=== PATIENT | male | born 1975 | race Caucasian/White ===

== ENCOUNTER 2025-04-22 15:03 | Emergency (ER) | payer OTHER, SELFPAY ==
[2025-04-22] VITALS (13 sets, daily range): BP systolic 138–168; BP diastolic 96–116; PULSE 104–128; RESP 18–32; TEMP 36.6–37.4; O2SAT 89–97
--- NOTE | ~2025-04-22 | XR_ITS ---
EXAMINATION: XR chest 2V 04/22/2025 15:50 INDICATION: Hypoxia PROCEDURE: 2 view chest COMPARISON: No prior studies for comparison. FINDINGS: The lungs are clear. The cardiomediastinal silhouette is within normal limits. There are no pleural effusions. There is no pneumothorax suspected. IMPRESSION: 1: NO ACUTE CARDIOPULMONARY DISEASE. Reviewed, dictated and finalized at location B.
--- NOTE | ~2025-04-22 | CT_ITS ---
CT brain wo con Ordering provider: Kvng Kilgore MD History: 49 years Male with . ams . Comparison: None. Technique: CT of the head without contrast. Radiation reduction technique utilized. The dose-length product was 804.729 mGy-cm. FINDINGS: BRAIN PARENCHYMA AND CSF SPACES: No midline shift, mass effect or hemorrhage. The brain parenchyma a nd CSF spaces are otherwise normal. VISUALIZED PARANASAL SINUSES: Well aerated. MASTOIDS: Well aerated. BONES: The bones appear intact. SOFT TISSUES: Visualized nasopharynx is normal. Superficial soft tissues are normal. IMPRESSION: No acute intracranial findings. Reviewed, dictated and finalized at location A.
--- NOTE | 2025-04-22 15:10 | ED_ITS ---
HPI - Altered Mental Status General Chief Complaint: Seizure Stated Complaint: confusion Time Seen by Provider: 04/22/25 15:08 Source: patient Mode of arrival: EMS Limitations: no limitations History of Present Illness HPI narrative: Patient is a 49-year-old male with last remembrance of a situation where he was urinating on the floor in the other room of his bedroom. This happened prior to arrival. He has a history of seizures but has not been on his Keppra for many years. He has not had a seizure activity since 2018. There was no witnessed seizure activity today. He was confused and the family called EMS. He is now back to baseline but has some aches and pains and his mouth and jaw and tongue hurt at this time. upon presentation to the emergency room the patient has tachycardia and hypoxia for unclear reasoning. MD complaint: altered mental status Onset (ago): hour(s) ( One) Timing confirmed by: family member Severity: moderate Consistency of symptoms: unknown Context: seizure disorder Associated symptoms: malaise, seizure ( unknown), shortness of breath, weakness ( muscle aches and pains) and incontinence ( urine) Treatments prior to arrival: other ( none) Related Data Home Medications ?Medication ?Instructions ?Recorded ?Confirmed ?Last Taken ?Type No Home Medications 04/22/25 04/22/25 Unknown History Allergies Allergy/AdvReac Type Severity Reaction Status Date / Time No Known Allergies Allergy Verified 04/22/25 15:13 Review of Systems 2 Review of Systems: All systems reviewed & are unremarkable except as noted in HPI and below Constitutional: Constitutional: Reports no additional constitutional complaints Eyes: Eyes: Reports no additional eye complaints ENT: Reports system reviewed and no additional complaints, except as documented Cardiovascular: Cardiovascular: Reports no additional cardiovascular complaints Respiratory: Respiratory: Reports no additional respiratory complaints Gastrointestinal: Gastrointestinal: Reports no additional gastrointestinal complaints Genitourinary: Genitourinary: Reports no additional male genitourinary complaints Musculoskeletal: Musculoskeletal: Reports no additional musculoskeletal complaints Integumentary/Breasts: Skin/Breast: Reports system reviewed and no additional complaints, except as docu Neurologic: Reports system reviewed and no additional complaints, except as documented Psychiatric: Psychiatric: Reports no additional psychiatric complaints Endocrine: Endocrine: Reports no additional endocrine complaints Hematologic/Lymphatic: Hematologic/Lymphatic: Reports no additional hematologic/lymphatic complaints Allergic/Immunologic: Allergic/Immunologic: Reports no additional allergic/immunologic complaints Exam 2 Const: General: healthy appearing Nutritional Appearance: well nourished Orientation/consciousness: patient oriented x3 Limitations: no limitations HENMT: Head: normal to inspection Ears: external ears normal F fabienne/Nose/Sinus: Normal external nose present Eyes: Conjunctivae: conjunctivae normal Pupils: Equal, round and reactive pupils present EOM: EOMs intact bilaterally Neck: Neck: normal visual inspection Chest: Chest palpation & inspection: normal inspection of the chest Resp: Effort & Inspection: normal respiratory effort and not labored A uscultation: clear to auscultation bilaterally and no crackles Cardio: Rate: tachycardic Rhythm: regular rhythm Heart sounds: no murmurs GI: Inspection: non-distended GI Palp: Yes Soft to palpation and No Tenderness to palpation present (GI) Auscultation: normal bowel sounds : General: Yes bladder normal to palpation Back/Spine/Pelvis: Back: no CVA tenderness Skin: General skin exam: normal color Rashes: no rashes Wounds: no wounds Neuro: General: patient oriented x3 Cranial nerves: Yes Nystagmus not present Speech: normal speech Other: Fast exam negative, NIH is 0, GCS is 15, sluggish to answer properly of questions Extrem: General: normal to inspection Psych: Mental Status: mental status grossly normal Affect: normal affect Attitude: cooperative Course Vital Signs Vital signs: Vital Signs Pulse Rate 128 H 04/22/25 15:10 Pulse Oximetry 92 04/22/25 15:10 Oxygen Delivery Room Air 04/22/25 15:10 Temperature 37.4 C 04/22/25 15:18 Pulse Rate 114 H 04/22/25 16:02 Respiratory Rate 32 H 04/22/25 16:02 Blood Pressure 144/98 H 04/22/25 16:01 Pulse Oximetry 93 04/22/25 16:02 Oxygen Delivery Room Air 04/22/25 15:25 MDM - Altered Mental Status MDM Narrative Medical decision making narrative: patient is a 49-year-old male with a history of seizures having an altered mental status event today prior to arrival and urination event. We will do a neurological workup at this time. Lab Data Attestation: I reviewed the patient's lab results. 04/22/25 15:34 04/22/25 15:34 Labs: Lab Results 04/22/25 04/22/25 Range/Units 15:34 16:15 WBC 13.9 H (4.8-10.8) K/mm3 RBC 4.89 (4.70-6.10) M/mm3 Hgb 15.0 (14.0-18.0) g/dL Hct 44.2 (40.0-54.0) % MCV 90.4 (78.0-102.0) fL MCH 30.7 (27.0-31.0) pg MCHC 33.9 (32-36) g/dL RDW 12.7 (11.6-14.4) % Plt Count 291 (150-420) K/mm3 MPV 10.0 (8.7-11.0) fl Immature Gran % (Auto) 0.9 H (0.0-0.0) % Neut % (Auto) 78.6 H (50.0-70.0) % Lymph % (Auto) 12.0 L (18.0-42.0) % [place] % (Auto) 5.6 (2.0-11.0) % Eos % (Auto) 2.3 (1.0-6.0) % Baso % (Auto) 0.6 (0.0-1.0) % Lymph # (Auto) 1.67 (1.10-4.50) K/mm3 [place] # (Auto) 0.78 (0.10-0.90) K/mm3 Eos # (Auto) 0.32 (0.02-0.50) K/mm3 Baso # (Auto) 0.08 (0.00-0.10) K/mm3 Abs Immat Gran (auto) 0.12 H (0.00-0.00) K/mm3 Absolute Neuts (auto) 10.89 H (1.70-7.20) K/mm3 Absolute Nucleated RBC 0.00 (0.00-0.00) K/mm3 Nucleated RBC % 0.0 (0-0.0) % D-Dimer 0.24 (0.19-0.50) mg/L Sodium 140 (137-145) mmol/L Potassium 4.7 (3.4-5.0) mmol/L Chloride 109 H (98-107) mmol/L Carbon Dioxide 23 (22-30) mmol/L Anion Gap 8 (4-12) mmol/L BUN 14 (9-20) mg/dL Creatinine 1.14 (0.7-1.3) mg/dL Estim Creat Clear Calc 77 ml/min Estimated GFR > 60 (59 - ) Glucose 128 H (65-110) mg/dL Calculated Osmolality 292 (285-295) mOsm/kg Calcium 8.8 (8.4-10.2) mg/dL Total Bilirubin 0.5 (0.2-1.3) mg/dL AST 44 (17-59) U/L ALT 51 H (6-50) U/L Alkaline Phosphatase 87 (38-126) U/L Total Creatine Kinase 184 H (55-170) U/L Troponin I < 0.012 (0.000-0.034) ng/mL Total Protein 6.8 (6.3-8.2) g/dL Albumin 4.5 (3.5-5.1) g/dL Urine Color Light yellow (Yellow) Urine Appearance Clear (Clear) Urine pH 5.5 (5.0-8.0) Ur Specific [place] 1.025 H (1.010-1.020) Urine Protein Negative (Negative) Urine Glucose (UA) Negative (Negative) Urine Ketones Negative (Negative) Ur Blood (Man) 1+ H (Negative) Urine Nitrate Negative (Negative) Urine Bilirubin Negative (Negative) Urine Urobilinogen 0.2 (0.2-1.0) mg/dL Leukocyte Esterase Rfl Negative (Negative) ANGELIC/UL Urine RBC 6-10 H (0-2) /hpf Urine WBC None seen (0-3) /hpf Ur Squamous Epith Cells Rare (Few) /hpf Urine Bacteria Trace (None) /hpf Urine Opiates Screen Negative (Negative) Urine Methadone Screen Negative (Negative) Ur Barbiturates Screen Negative (Negative) Ur Phencyclidine Scrn Negative (Negative) Ur Amphetamine Screen Negative (Negative) U Benzodiazepines Scrn Negative (Negative) Urine Cocaine Screen Negative (Negative) U Cannabinoids Screen Negative (Negative) Ethyl Alcohol < 10 (<10) mg/dL Imaging Data Attestation: I personally reviewed and interpreted this imaging study as follows: Radiologist's impression: chest x-ray is negative for acute process CT scan of the head was negative for acute process ECG Data EKG #1: Attestation: I personally reviewed and interpreted this ECG as follows: ECG completion date: 04/22/25 ECG completion time: 15:38 EKG Interpretation: tachycardia, sinus rhythm, no ectopy, no ST changes, normal QRS, normal QT and left axis Discharge Plan Discharge Clinical Impression: Seizure-like activity Patient Disposition: Home Condition: Stable Instructions: Epilepsy (ED) Additional Instructions: please follow-up with the primary doctor in the next week. Have the primary doctor refer you to a neurologist for further seizure activity workup and treatment. Monitor your blood pressure 1st thing in the morning and write them down for the primary doctor to review. Come back to the ER with any further concerns. Please no driving until Neurology has reviewed your case. Patient Language: Palestinian Prescriptions: No Action No Home Medications Follow-up/Referrals: Serge Montgomery MD [Primary Care Provider] - Stand Alone Forms: Work/School Release IP Time of Disposition: 17:03
--- NOTE | 2025-04-22 15:15 | ECG_ITS ---
Test Date: 2025-04-22 15:31:40 Measurements Intervals [place] Rate: 118 P: 39 MD: 112 QRS: -6 QRSD: 90 T: -13 QT: 307 QTc: 432 Interpretive Statements SINUS TACHYCARDIA WITH SHORT MD INTERVAL NONSPECIFIC T-WAVE ABNORMALITY- INFERIOR LEADS ABNORMAL ECG No previous ECG available for comparison Electronically Signed On 04-22-2025 16:13:52 CDT by Arun Sparrow D.O.
[2025-04-22 15:39] LABS: Basophils Absolute Auto 0.08 K/mm3 (0.00-0.10); Basophils Percent Auto 0.6 % (0.0-1.0); Eosinophils Absolute Auto 0.32 K/mm3 (0.02-0.50); Eosinophils Percent Auto 2.3 % (1.0-6.0); Hematocrit 44.2 % (40.0-54.0); Immature Granulocyte Absolute 0.12 K/mm3 (0.00-0.00); Immature Granulocyte Percent A 0.9 % (0.0-0.0); Lymphocytes Absolute Auto 1.67 K/mm3 (1.10-4.50); Mean Corpuscular HGB Conc 33.9 g/dL (32-36); Mean Corpuscular Hemoglobin 30.7 pg (27.0-31.0); Mean Corpuscular Volume 90.4 fL (78.0-102.0); Monocytes Absolute Auto 0.78 K/mm3 (0.10-0.90); Monocytes Percent Auto 5.6 % (2.0-11.0); Neutrophils Absolute Auto 10.89 K/mm3 (1.70-7.20); Neutrophils Percent Auto 78.6 % (50.0-70.0); Platelet Count Result 291 K/mm3 (150-420); Red Blood Count 4.89 M/mm3 (4.70-6.10); Red Cell Distribution Width 12.7 % (11.6-14.4); White Blood Count 13.9 K/mm3 (4.8-10.8)
[2025-04-22 15:52] LABS: D Dimer 0.24 mg/L (0.19-0.50)
[2025-04-22 15:53] LABS: Ethanol < 10 mg/dL (<10)
[2025-04-22 16:02] LABS: Creatine Kinase 184 U/L (55-170)
[2025-04-22 16:06] LABS: Potassium 4.7 mmol/L (3.4-5.0); Sodium 140 mmol/L (137-145)
[2025-04-22 16:07] LABS: Alanine Aminotransferase 51 U/L (6-50); Anion Gap 8 mmol/L (4-12); Aspartate Amino Transferase 44 U/L (17-59); Bilirubin,Total 0.5 mg/dL (0.2-1.3); Blood Urea Nitrogen 14 mg/dL (9-20); Calcium 8.8 mg/dL (8.4-10.2); Carbon Dioxide 23 mmol/L (22-30); Chloride 109 mmol/L (98-107); Estimated CRCL calculation 77 ml/min; Estimated Glomerular Filt Rate > 60; Glucose 128 mg/dL (65-110); Osmolality Calculated 292 mOsm/kg (285-295); Total Protein 6.8 g/dL (6.3-8.2); Troponin I < 0.012 ng/mL (0.000-0.034)
[2025-04-22 16:08] LABS: Albumin Level 4.5 g/dL (3.5-5.1); Alkaline Phosphatase 87 U/L (38-126)
--- NOTE | 2025-04-22 16:20 | PC.NURSE ---
Assisted pt to stand on side of bed to urinate. Pt noted to have slow processing at this time, needing reinforcement and instruction to get out of bed. 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
[2025-04-22 16:22] LABS: Add Urine Microscopic? YES; Appearance Urine Clear (Clear); Bilirubin Urine Negative (Negative); Blood Urine 1+ (Negative); Color Urine Light Yellow (Yellow); Glucose Urine UA Negative (Negative); Ketones Urine Negative (Negative); Leukocyte Esterase Ur Negative LEU/UL (Negative); Nitrate Urine Negative (Negative); Protein Urine Negative (Negative); Specific Grav Ur 1.025 (1.010-1.020); Urobilinogen Urine 0.2 mg/dL (0.2-1.0); pH Urine 5.5 (5.0-8.0)
--- OUTSIDE RECORDS SUMMARY | 2025-04-22 16:26 | XMS_ITS | Continuity of Care Document ---
Author Organization [facility] Address [address] [address] [place] [address] Phone Care Team Providers Care Tennis Instructor Name Role Phone Update, [employer] Unavailable Unavailable Advance Directives Directive Yes / No Effective Date File Name No Information Encounters Encounter Description Practice Location Reason(s) For Visit Diagnoses Date Provider Providers Copied on Encounter [facility], [address] [address], [place], [place], [id number], tel:[phone] [facility] No Information Update [employer]. [address], [place], [id number]. tel:[phone] Family History Family Member Type Diagnosis Age At Onset No Information Payers Payer name Insurance type Covered democrat ID Authoriza tion(s) No Information Social History Type Description Quantity Date Captured Comments Sex Male Smoking Status No Information Chief Complaint And Reason For Visit No Information Reason For Referral Reason For Referral No Information History Of Present Illness Encounter Date Complaint History Of Prese nt Illness No Information Functional Status Date Functional Assessmen t No Information Instructions Date Instruction Additional Infor mation No Information Assessments Type Assessment Date No Information Patient Care Teams Name Effective Dates (start - stop) Status Members No Information
[2025-04-22 16:38] LABS: Amphetamine Screen Urine Negative (Negative); Barbiturate Screen Urine Negative (Negative); Benzodiazepines Screen Urine Negative (Negative); Cannabinoid Screen Urine Negative (Negative); Cocaine Screen Urine Negative (Negative); Methadone Screen Urine Negative (Negative); Opiate Screen Urine Negative (Negative); Phencyclidine Screen Urine Negative (Negative)
[2025-04-22 16:49] LABS: Bacteria Urine Trace /hpf; Squamous Epithelial Cell Urine Rare /hpf (Few); WBC Urine None seen /hpf (0-3)
--- NOTE | 2025-04-22 17:05 | PC.NURSE ---
Pt instructed on test results and need for f/u care w/ PCP and to get re-established w/ neuro for recheck.
--- OUTSIDE RECORDS SUMMARY | 2025-04-22 17:11 | XMS_ITS | Continuity of Care Document ---
Author Organization [facility] Address [address] [address] [place] [address] Phone Care Team Providers Care Product Info Specialist Name Role Phone Update, [employer] Unavailable Unavailable Advance Directives Directive Yes / No Effective Date File Name No Information Encounters Encounter Description Practice Location Reason(s) For Visit Diagnoses Date Provider Providers Copied on Encounter [facility], [address] [address], [place], [place], [id number], tel:[phone] [facility] No Information Update [employer]. [address], [place], [id number]. tel:[phone] Family History Family Member Type Diagnosis Age At Onset No Information Payers Payer name Insurance type Covered constitution party ID Authoriza tion(s) No Information Social History [...]
== END 2025-04-22 17:09 | disposition home or self-care (01) ==
PROVIDERS: Emergency Provider Emergency Medicine; PCP Family Medicine
DX: R56.9 Unspecified convulsions (principal)
CPT/HCPCS: 36415; 70450; 71046; 80053; 80307; 81001; 82077; 82550; 84484; 85025; 85380; 93005; 99284